=== PATIENT | female | born 1980 | race Caucasian/White ===

== ENCOUNTER 2020-03-30 14:19 | Emergency (ER) | payer OTHER ==
[2020-09-14] MEDS ORDERED: IBUPROFEN200 M1 PO (09:07)
[2020-09-14] MEDS ORDERED: TOPROL XL25 MG PO (09:07)
[2020-09-14] MEDS ORDERED: TYLENOL EXTRA500 MG PO (09:08)
[2020-09-21] MEDS ORDERED: IBUPROFEN600 MG PO (13:54)
[2020-09-21] MEDS ORDERED: HYDROCODONE-AC1 EACH PO (13:54)
[2020-09-21] MEDS ORDERED: DOCUSATE SODIU250 MG PO (13:54)
== END 2020-03-30 19:30 | disposition home or self-care (01) ==
LOC: ER1 14:19
DX: J02.9 Acute pharyngitis, unspecified (principal); B19.20 Unspecified viral hepatitis C without hepatic coma; Z20.822 Contact with and (suspected) exposure to COVID-19
CPT/HCPCS: 71045; 87081; 87880; 99283; U0002

== ENCOUNTER → 2020-08-08 | Outpatient (CLI) | payer OTHER ==
[~2020-08-08] MED LIST: DOCUSATE SODIU250 MG PO; HYDROCODONE-AC1 EACH PO; IBUPROFEN200 M1 PO; IBUPROFEN600 MG PO; TOPROL XL25 MG PO; TYLENOL EXTRA500 MG PO
== END ==
LOC: KOH-I 14:30
DX: R10.84 Generalized abdominal pain (principal); N83.9 Noninflammatory disorder of ovary, fallopian tube and broad ligament, unspecified
CPT/HCPCS: 74176

== ENCOUNTER 2020-08-12 21:43 | Emergency (ER) | payer OTHER ==
[2020-08-12 22:02] LABS: HEMOGLOBIN 12.8 gm/dl (12.3-15.3); RED BLOOD COUNT 5.35 M/UL (4.00-5.10)
[2020-08-12 22:41] LABS: BUN/CREATININE RATIO 23 (0-10)
[2020-09-14] MEDS ORDERED: TOPROL XL25 MG PO (09:07)
[2020-09-14] MEDS ORDERED: IBUPROFEN200 M1 PO (09:07)
[2020-09-14] MEDS ORDERED: TYLENOL EXTRA500 MG PO (09:08)
[2020-09-21] MEDS ORDERED: IBUPROFEN600 MG PO (13:54)
[2020-09-21] MEDS ORDERED: DOCUSATE SODIU250 MG PO (13:54)
[2020-09-21] MEDS ORDERED: HYDROCODONE-AC1 EACH PO (13:54)
== END 2020-08-12 23:34 | disposition left against medical advice (07) ==
LOC: ER1 21:43
PROVIDERS: Family Medicine
DX: Z53.21 Procedure and treatment not carried out due to patient leaving prior to being seen by health care provider (principal)
CPT/HCPCS: 80053; 82550; 82553; 83874; 84484; 85025; 93005

== ENCOUNTER 2020-08-19 21:45 | Emergency (ER) | payer OTHER ==
[2020-09-14] MEDS ORDERED: TOPROL XL25 MG PO (09:07)
[2020-09-14] MEDS ORDERED: IBUPROFEN200 M1 PO (09:07)
[2020-09-14] MEDS ORDERED: TYLENOL EXTRA500 MG PO (09:08)
[2020-09-21] MEDS ORDERED: IBUPROFEN600 MG PO (13:54)
[2020-09-21] MEDS ORDERED: HYDROCODONE-AC1 EACH PO (13:54)
[2020-09-21] MEDS ORDERED: DOCUSATE SODIU250 MG PO (13:54)
== END 2020-08-20 00:40 | disposition home or self-care (01) ==
LOC: ER1 21:45
DX: Z53.21 Procedure and treatment not carried out due to patient leaving prior to being seen by health care provider (principal)

== ENCOUNTER → 2020-09-14 | Outpatient (CLI) | payer OTHER ==
[2020-09-14 08:53] LABS: RED BLOOD COUNT 5.44 M/UL (4.00-5.10); WHITE BLOOD COUNT 8.3 K/UL (4.5-11.0)
[2020-09-14 09:06] LABS: BUN/CREATININE RATIO 18 (0-10)
== END ==
LOC: OPSV2 07:36
PROVIDERS: Obstetrics & Gynecology
DX: Z01.812 Encounter for preprocedural laboratory examination (principal); R10.2 Pelvic and perineal pain; G89.29 Other chronic pain
CPT/HCPCS: 36415; 80053; 81001; 85025

== ENCOUNTER → 2020-09-21 | Day surgery (SDC) | payer OTHER | END | disposition home or self-care (01) | LOC: OR 07:53 | DX: N80.0 Endometriosis of uterus (principal); N72 Inflammatory disease of cervix uteri; N83.8 Other noninflammatory disorders of ovary, fallopian tube and broad ligament; F17.210 Nicotine dependence, cigarettes, uncomplicated; Z98.51 Tubal ligation status; Z79.1 Long term (current) use of non-steroidal anti-inflammatories (NSAID); Z79.899 Other long term (current) drug therapy | CPT/HCPCS: C1769; J0690; J1100; J1170; J1885; J2001; J2250; J2405; J2704; J2710; J3010; J7120 ==

== ENCOUNTER → 2021-02-26 | Outpatient (CLI) | payer OTHER | LOC: HEART 5 02-04 08:30 | DX: R07.9 Chest pain, unspecified (principal); I37.1 Nonrheumatic pulmonary valve insufficiency | CPT/HCPCS: 93306 ==

== ENCOUNTER 2021-05-08 16:39 | Emergency (ER) | payer OTHER ==
[2021-05-08 17:59] LABS: HEMOGLOBIN 12.3 gm/dl (12.3-15.3); RED BLOOD COUNT 5.17 M/UL (4.00-5.10); WHITE BLOOD COUNT 9.4 K/UL (4.5-11.0)
[2021-05-08 18:43] LABS: BUN/CREATININE RATIO 21 (0-10)
[2021-05-08] MEDS ORDERED: BENZONATATE200 MG PO (19:22)
== END 2021-05-08 19:35 | disposition home or self-care (01) ==
LOC: ER1 16:39
PROVIDERS: Nurse Practitioner
DX: R05.9 Cough, unspecified (principal); E86.0 Dehydration; F17.210 Nicotine dependence, cigarettes, uncomplicated; Z20.822 Contact with and (suspected) exposure to COVID-19
CPT/HCPCS: 0240U; 36600; 71045; 80053; 81001; 82803; 85025; 85652; 86140; 87086; 94664; 96374; 99284; J0696

== ENCOUNTER → 2021-06-11 | Outpatient (CLI) | payer OTHER ==
[~2021-06-11] MED LIST changes: +BENZONATATE200 MG PO
== END ==
LOC: KOH-I 15:35
DX: M25.551 Pain in right hip (principal)
CPT/HCPCS: 73502